=== PATIENT | male | born 1985 | race Caucasian/White ===

== ENCOUNTER 2019-02-15 12:32 | Emergency (ER) | payer OTHER ==
[~2019-02-15] VITALS: Ht 170.2 cm; Wt 76.2 kg
[2019-02-15 12:34] VITALS: BP_SYST 124
[2019-02-15 12:55] VITALS: BP_SYST 124
== END 2019-02-15 12:55 ==
LOC: SED 12:32
DX: S00.33XA Contusion of nose, initial encounter (principal); V43.52XA Car driver injured in collision with other type car in traffic accident, initial encounter; Y93.89 Activity, other specified; Y92.488 Other paved roadways as the place of occurrence of the external cause; Y99.8 Other external cause status
CPT/HCPCS: 99283